=== PATIENT | female | born 1960 | race Caucasian/White ===

== ENCOUNTER 2017-09-20 19:46 | Inpatient (IN) | payer MEDICAID ==
[~2017-09-20] VITALS: Ht 154.9 cm; Wt 86.6 kg
[2017-09-20 10:30] VITALS: BP 134/62
[2017-09-20 19:49] VITALS: BP 144/86
--- NOTE | 2017-09-20 19:55 | NUR ---
PATIENT PRESENTS TO ED WITH LEFT SIDE FACIAL WEAKNESS X1 DAY. DR VILLA AT BEDSIDE FOR ASSESSMENT . PT STATES DROOLING SINCE THIS AM AND UNABLE TO KEEP FOOD IN MOUTH D/T FACIAL WEAKNESS . DENIES N/V/D; SKIN IS PINK/WARM/DRY; AAOX4 WITH EVEN AND STEADY GAIT; PT HAS MILD WEAKNESS TO LEFT HAND; LUNGS CLEAR BL; HR EVEN AND REGULAR; PT DENIES ANY FEVER, CP, SOB, OR COUGH AT THIS TIME; PATIENT STATES PAIN OF 4/10 FACIAL PAIN AT THIS TIME; VSS; PATIENT POSITIONED FOR COMFORT; HOB ELEVATED; BEDRAILS UP X2; BED DOWN. ER MD MADE AWARE OF PT STATUS.
--- NOTE | 2017-09-20 19:55 | NUR ---
PT TAKEN TO BED 1
--- NOTE | 2017-09-20 19:58 | NUR ---
Dr. Martinez evaluating patient at bedside.
--- NOTE | 2017-09-20 20:25 | NUR ---
PT TAKEN TO CT
[2017-09-20 20:38] LABS: APPEARANCE,URINE CLEAR (CLEAR); BILIRUBIN,URINE NEGATIVE (NEGATIVE); BLOOD, URINE TRACE-L (NEGATIVE); COLOR,URINE YELLOW (YELLOW); LEUKOCYTE ESTERASE ,URINE NEGATIVE (NEGATIVE); NITRITE, URINE NEGATIVE (NEGATIVE); UGLUCOSE NEGATIVE (NEGATIVE)
[2017-09-20 20:45] LABS: BASOPHILS # (AUTO) 0.2 K/uL (0.00-0.22); BASOPHILS % (AUTO) 2.4 % (0.0-2.0); EOSINOPHILS # (AUTO) 0.1 K/uL (0-0.4); EOSINOPHILS % (AUTO) 1.5 % (0.0-4.0); HEMOGLOBIN 12.7 g/dL (12.0-16.0); LYMPHOCYTES # (AUTO) 2.7 K/uL (2.5-16.5); LYMPHOCYTES % (AUTO) 39.1 % (20.5-51.1); MEAN CORPUSCULAR HEMOGLOBIN 30 pg (27-31); MEAN CORPUSCULAR HGB CONC 34 g/dL (33-37); MEAN CORPUSCULAR VOLUME 90.7 fL (80-94); MONOCYTES # (AUTO) 0.6 K/uL (0.8-1.0); MONOCYTES % (AUTO) 8.7 % (1.7-9.3); NEUTROPHILS # (AUTO) 3.3 K/uL (1.8-7.7); NEUTROPHILS % (AUTO) 48.3 % (42.2-75.2); PLATELET COUNT (AUTO) 165 K/uL (140-450); RED BLOOD CELL COUNT(AUTO) 4.19 MIL/uL (4.20-5.40); RED CELL DISTRIBUTION WIDTH 12.4 % (11.6-13.7); WHITE BLOOD COUNT (AUTO) 6.9 K/uL (4.8-10.8)
[2017-09-20 20:48] LABS: ANION GAP 15.8 (8-16); CARBON DIOXIDE 24.8 mmol/L (21-32); CREATININE 0.7 mg/dL (0.6-1.3); POTASSIUM 3.6 mmol/L (3.5-5.1)
[2017-09-20 20:54] LABS: ALBUMIN 3.9 g/dL (3.4-5.0); TOTAL BILIRUBIN 0.4 mg/dL (0.0-1.0)
[2017-09-20 21:15] LABS: FREE T4 (FREE THYROXINE) 0.77 ng/dL (0.76-1.46); THYROID STIMULATING HORMONE 3.16 uIU/mL (0.34-3.74)
[2017-09-20 21:19] LABS: RBC,URINE 0-5 (RARE) /HPF (0-5); WBC,URINE 0-5 (RARE) /HPF (0-5)
--- NOTE | 2017-09-20 21:30 | NUR ---
PT MOVED TO BED 4
[2017-09-20] MEDS ORDERED: HYDROcodone/APAP 7.5/325 MG 1 TAB PO PRN (22:10)
[2017-09-20] MEDS ORDERED: ONDANSETRON 4 MG/2 ML VIAL IVP PRN (22:10)
[2017-09-20] MEDS ORDERED: SYN.075 PO (22:14)
[2017-09-20] MEDS ORDERED: ASPIRIN 325 MG TABEC PO ONE (22:15)
[2017-09-20] MEDS ORDERED: ATORVASTATIN 20 MG TAB PO SCH (22:15)
--- NOTE | 2017-09-20 22:19 | NUR ---
Pt transferred to Tele via .
--- NOTE | 2017-09-20 22:25 | NUR ---
REPORT GIVEN AND CARE TRANSFERED TO SOLO MUNOZ. ROOM 104A. TRANSFERED VIA [place] WITH VSS.
[2017-09-20 22:27] LABS: CHOL/HDL RATIO 4.4 (1-4.5); PHOSPHORUS 3.5 mg/dL (2.5-4.9)
--- NOTE | 2017-09-20 22:30 | NUR ---
PATIENT ADMITTED TO THE UNIT FROM ER. PATIENT AWAKE, ALERT AND ORIENTED. PATIENT IS AMBULATORY. NO S/S OF DISTRESS NOTED. PATIENT ON ROOM AIR. MILD LEFT SIDED FACIAL DROOP NOTED. MILD WEAKNESS NOTED TO LEFT UPPER EXTREMITY. IV LINE NOTED TO RIGHT AC SALINE LOCKED. PATIENT ON TELE MONITORING. BED LOWERED WITH CALL LIGHT WITHIN REACH. WILL CONTINUE TO MONITOR
[2017-09-20 22:32] LABS: BARBITURATE, URINE NEG. ng/ml (NEG <=200); BENZODIAZEPINE, URINE NEG. ng/mL (NEG <=200); CANNABINOID, URINE NEG. ng/mL (NEG <=50); COCAINE, URINE NEG. ng/mL (NEG <=300); OPIATE, URINE NEG. ng/mL (NEG <=2000); PHENCYCLIDINE SCREEN,URINE NEG. ng/mL (NEG <=25)
[2017-09-20] MEDS: ACETAMINOPHEN 325 MG TAB PO PRN (22:41)
[2017-09-20] MEDS ORDERED: NACL 0.9% 1,000 ML IV ONE (23:15)
[2017-09-21] VITALS: BP 106/43
--- NOTE | 2017-09-21 02:11 | NUR ---
PATIENT ASLEEP IN BED. NO S/S OF DISTRESS NOTED
[2017-09-21 04:00] VITALS: BP 112/62
--- NOTE | 2017-09-21 06:00 | NUR ---
PATIENT AMBULATED TO THE BATHROOM TO VOID. NO S/S OF DISTRESS
[2017-09-21] MEDS: LEVOTHYROXINE 0.075 MG TAB PO SCH (06:23)
--- NOTE | 2017-09-21 07:23 | NUR ---
PATIENT REPORT GIVEN AT BEDSIDE. PATIENT ENDORSED IN STABLE CONDITION
--- NOTE | 2017-09-21 07:30 | NUR ---
RECEIVED PT'S REPORT FROM REGULATORY CONSULTANT NURSE, SOLO, PT IS AWAKE LYING ON THE BED WITH AN IV LINE ON RIGHT AC, NS 100ML/HR, G.20. PT IS ON NPO EXCEPT MEDS. NO SIGN OF DISTRESS NOTED. CALL LIGHT WITHIN REACH. WILL CONTINUE TO MONITOR.
[2017-09-21 08:00] VITALS: BP 126/72
--- NOTE | 2017-09-21 08:10 | NUR ---
PT IS AWAKE LYING ON THE BED, VITAL SIGNS TAKEN. NO SIGN OF DISTRESS NOTED AT THIS TIME. CALL LIGHT WITHIN REACH. WILL MONITOR.
[2017-09-21] MEDS: DOCUSATE SODIUM 100 MG GELCAP PO SCH ×2 (09:19→20:53)
[2017-09-21] MEDS ORDERED: ATORVASTATIN 20 MG TAB PO SCH (09:40)
--- NOTE | 2017-09-21 10:00 | NUR ---
PT IS AWAKE LYING ON THE BED, MEDICATIONS GIVEN. NO SIGN OF DISTRESS NOTED. CALL LIGHT WITHIN REACH. WILL MONITOR.
--- NOTE | 2017-09-21 10:45 | NUR ---
CALL CENTER SUPPORT CONSULTANT note (bedside swallow evaluation completed) [phone]. Bedside swallow evaluation completed, please see report for details. CALL CENTER SUPPORT CONSULTANT provided pt with education regarding purpose of evaluation and rationale for recommendations. Pt verbalized and demonstrated understanding and agreement with recommendations at this time. Recommend: 1) [id number] foods (per pt's request) 2) thin liquids 3) general aspiration precautions (including pt must be fully awake/alert/upright for any PO intakes, alternate small/slow bites and sips, stop PO if pt becomes less alert/SOB/coughing) 4) no further CALL CENTER SUPPORT CONSULTANT intervention indicated at this time. Physician may reorder if further concerns arise, as appropriate. Pt may benefit from outpatient CALL CENTER SUPPORT CONSULTANT intervention if pt's left-sided facial deficits persist, as appropriate. G-codes: [id number] [place] NOMS level 6. PVE for d/w RN (Diana) and auditing specialist (Angelica) prior to and following bedside swallow evaluation completion.
[2017-09-21 12:00] VITALS: BP 126/75
--- NOTE | 2017-09-21 12:16 | NUR ---
PT IS AWAKE, LYING ON THE BED, PAIN MEDICATION GIVEN. PT TOLERATED IT. WILL REASSESS PAIN AFTER AN HOUR. CALL LIGHT WITHIN REACH. NO SIGN OF DISTRESS NOTED. WILL MONITOR.
--- NOTE | 2017-09-21 13:23 | NUR ---
P.T. NOTES P.T. WERNER COMPLETED; NURSING TO AMBULATE PATIENT AD PARRISH. Addendum: 09/21/17 at 1323 by Hellen Leonard PT Amended: Links added.
--- NOTE | 2017-09-21 14:00 | NUR ---
PATIENT HAS BEEN SCREENED AND CATEGORIZED HIGH NUTRITION RISK. PATIENT WILL BE SEEN WITHIN 1-2 DAYS OF ADMISSION. 09/21/17 - 09/22/[address]
[2017-09-21 16:00] VITALS: BP 162/57
--- NOTE | 2017-09-21 17:20 | NUR ---
PT IS AWAKE LYING ON THE BED, VITAL SIGNS TAKEN, REPORTED BP RESULT OF 162/57 TO COURTNEY NORTON.
[2017-09-21] MEDS ORDERED: methylPREDNISolone SS 125 MG/2 ML VIAL IVP ONE (17:40)
--- NOTE | 2017-09-21 19:50 | NUR ---
ENDORSED PT TO PLEAT PATTERNMAKER NURSE FOR CONTINUITY OF CARE. PT IS STABLE AT THIS TIME.
--- NOTE | 2017-09-21 19:51 | NUR ---
RECEIVED REPORT AT PT BEDSIDE FROM DAY SHIFT RN HECTOR, FOR CONTINUITY OF CARE. PATIENT IS AWAKE, A/OX4, ON ROOM AIR. ABLE TO MAKE NEEDS KNOWN, ABLE TO FOLLOW COMMANDS. PT SKIN IS INTACT, WARM AND DRY. PATIENT HAS PERIPHERAL IV SITE TO RIGHT AC 20G, ASYMPTOMATIC, INTACT, PATENT. SR ON MONITOR, RESPIRATIONS EVEN AND UNLABORED. DISCUSSED PLAN OF CARE WITH PT, PT VERBALIZED UNDERSTANDING. PT STABLE, NO SIGNS OF DISTRESS NOTED AT THIS TIME. BED IN LOWEST POSITION, CALL LIGHT WITHIN REACH. WILL CONTINUE TO MONITOR.
[2017-09-21 20:00] VITALS: BP 135/61
[2017-09-21] MEDS: ACETAMINOPHEN 325 MG TAB PO PRN (20:53)
--- NOTE | 2017-09-21 20:55 | NUR ---
ADMINISTERED SCHEDULED MEDICATIONS PER ORDER. PT TOLERATED WELL. PT STABLE, NO SIGNS OF DISTRESS NOTED AT THIS TIME. BED IN LOWEST POSITION, CALL LIGHT WITHIN REACH. WILL CONTINUE TO MONITOR.
[2017-09-21] MEDS: ACYCLOVIR 800 MG TAB PO SCH (21:20)
[2017-09-22] VITALS: BP 106/50
--- NOTE | 2017-09-22 | NUR ---
VITAL SIGNS WITHIN NORMAL LIMITS. PT STABLE, NO SIGNS OF DISTRESS NOTED AT THIS TIME. BED IN LOWEST POSITION, CALL LIGHT WITHIN REACH. WILL CONTINUE TO MONITOR.
--- NOTE | 2017-09-22 02:15 | NUR ---
PT STABLE, NO SIGNS OF DISTRESS NOTED AT THIS TIME. BED IN LOWEST POSITION, CALL LIGHT WITHIN REACH. WILL CONTINUE TO MONITOR PATIENT.
[2017-09-22 04:00] VITALS: BP 102/50
--- NOTE | 2017-09-22 04:00 | NUR ---
VITAL SIGNS WITHIN NORMAL LIMITS. PT STABLE, NO SIGNS OF DISTRESS NOTED AT THIS TIME. BED IN LOWEST POSITION, CALL LIGHT WITHIN REACH. WILL CONTINUE TO MONITOR PATIENT.
[2017-09-22] MEDS: LEVOTHYROXINE 0.075 MG TAB PO SCH (06:07)
--- NOTE | 2017-09-22 06:52 | NUR ---
PT REQUESTED TO BE DISCONNECTED FROM IV BECAUSE SHE WANTS TO USE RESTROOM WITHOUT IV POLE. DISCONNECTED PT AND ASKED PT TO CALL WHEN DONE SO SHE CAN BE RECONNECTED.
[2017-09-22 07:07] LABS: BASOPHILS % (AUTO) 0.7 % (0.0-2.0); EOSINOPHILS # (AUTO) 0.1 K/uL (0-0.4); EOSINOPHILS % (AUTO) 1.4 % (0.0-4.0); HEMATOCRIT 39.6 % (36-48); HEMOGLOBIN 13.3 g/dL (12.0-16.0); LYMPHOCYTES # (AUTO) 2.9 K/uL (2.5-16.5); LYMPHOCYTES % (AUTO) 41.8 % (20.5-51.1); MEAN CORPUSCULAR HEMOGLOBIN 31 pg (27-31); MEAN CORPUSCULAR HGB CONC 34 g/dL (33-37); MEAN CORPUSCULAR VOLUME 91.2 fL (80-94); MONOCYTES # (AUTO) 0.5 K/uL (0.8-1.0); MONOCYTES % (AUTO) 7.6 % (1.7-9.3); NEUTROPHILS # (AUTO) 3.3 K/uL (1.8-7.7); NEUTROPHILS % (AUTO) 48.5 % (42.2-75.2); PLATELET COUNT (AUTO) 179 K/uL (140-450); RED BLOOD CELL COUNT(AUTO) 4.34 MIL/uL (4.20-5.40); RED CELL DISTRIBUTION WIDTH 13.3 % (11.6-13.7); WHITE BLOOD COUNT (AUTO) 6.9 K/uL (4.8-10.8)
[2017-09-22 07:27] LABS: PHOSPHORUS 3.9 mg/dL (2.5-4.9)
--- NOTE | 2017-09-22 07:30 | NUR ---
RECEIVED PT REPORT FROM HEALTH INFORMATICS SPECIALIST RN. PATIENT IS AWAKE, ALERT, OX4. NO S/S OF RESP DISTRESS NOTED. ABLE TO MAKE NEEDS KNOWN. IV SITE RIGHT AC 20G, INTACT AND PATIENT. BUE/BLE EQUAL STRENGTH. LEFT FACIAL PARALYSIS NOTED, ABLE TO FEEL SENSATION. FALL PRECAUTION IN PLACE. PLAN OF CARE DISCUSSED, PT VERBALIZED UNDERSTANDING. CALL LIGHT WITHIN REACH. WILL CONTINUE TO MONITOR.
--- NOTE | 2017-09-22 07:31 | NUR ---
ENDORSED PT TO DAY SHIFT RN FOR CONTINUITY OF CARE. PT IN STABLE CONDITION.
[2017-09-22 07:37] LABS: ANION GAP 12.1 (8-16); CREATININE 0.6 mg/dL (0.6-1.3); POTASSIUM 4.1 mmol/L (3.5-5.1)
[2017-09-22 08:00] VITALS: BP 130/58
[2017-09-22] MEDS ORDERED: methylPREDNISolone SS 125 MG/2 ML VIAL IVP SCH (08:30)
[2017-09-22] MEDS: ACYCLOVIR 800 MG TAB PO SCH ×3 (08:31→16:18)
[2017-09-22] MEDS: DOCUSATE SODIUM 100 MG GELCAP PO SCH (08:31)
[2017-09-22] MEDS: POLYVINYL ALCOHOL 1.4% OP 15 ML SOL OP PRN ×2 (08:56→17:16)
[2017-09-22] MEDS ORDERED: ATORVASTATIN 20 MG TAB PO SCH (09:00)
--- NOTE | 2017-09-22 11:40 | NUR ---
PT SLEEPING, EASILY AROUSED. NO S/S OF DISTRESS ON RM AIR. ASKED PT HOW THE LEFT FACIAL PARALYSIS IS. PT STATED FEELS A LITTLE BIT BETTER.
[2017-09-22 12:00] VITALS: BP 102/56
--- NOTE | 2017-09-22 12:20 | NUR ---
PT C/O CONSTIPATION. PT IS ALREADY ON COLACE, ENCOURAGED AMBULATION. NOTIFIED DR VALDEZ.
--- NOTE | 2017-09-22 13:00 | NUR ---
PT AMB IN THE HALLWAY, GAIT STEADY. DENIES DIZZINESS.
[2017-09-22] MEDS ORDERED: MAGNESIUM CITRATE 300 ML BTL PO SCH (14:00)
--- NOTE | 2017-09-22 15:05 | NUR ---
09/22/17 RD INITIAL ASSESSMENT COMPLETED PLEASE REFER TO NUTRITION ASSESSMENT UNDER CARE ACTIVITY FOR ESTIMATED NUTRITIONAL NEEDS. 1. CONTINUE REGULAR DIET TEXTURE TOLERATED 2. RECOMMEND DIET CHANGE FROM A REGULAR TO A CARDIAC DIET 3. PROVIDED LOWERING TRIGLYCERIDE DIET EDUCATION 4. RD TO FOLLOW-UP 3-5 DAYS, MODERATE RISK BHAVESH MCCARTHY RD
[2017-09-22] MEDS ORDERED: ACYC800T2 PO (15:21)
[2017-09-22] MEDS ORDERED: PRED10TA5 PO (15:21)
[2017-09-22 16:00] VITALS: BP 145/83
--- NOTE | 2017-09-22 16:00 | NUR ---
PRUNE JUICE GIVEN. PT FINISHED AND TOLERATE WELL.
--- NOTE | 2017-09-22 17:30 | NUR ---
ACCORDING TO PT, SHE HAD BMX1 AFTER THE PRUNE JUICE. NO S/S OF DISTRESS, RESTING IN BED AT THIS TIME.
--- NOTE | 2017-09-22 18:10 | NUR ---
PT DISCHARGED PER MD ORDER. DISCHARGE INSTRUCTIONS AND MED TEACHING PROVIDED. PT VERBALIZED UNDERSTANDING. RX GIVEN. MADE PT AWARE OF THE SCHEDULED MD APPOINTMENT. IV DC'D, TIP INTACT, PRESSURE APPLIED. TELE BOX REMOVED, AND WRIST BAND REMOVED. PT LEFT IN STABLE CONDITION AND WITH ALL HER BELONGING. FAMILY SERVICE CASEWORKER WHEELED PT TO LOBBY.
== END 2017-09-22 18:20 | disposition home or self-care (01) | DRG 47 ==
LOC: MED 19:46 → MTU 22:05
PROVIDERS: ADMIT Family Medicine Sports Medicine; ATTEND Family Medicine Sports Medicine
DX: G45.9 Transient cerebral ischemic attack, unspecified (principal); I10 Essential (primary) hypertension; G51.0 Bell's palsy; E03.9 Hypothyroidism, unspecified; E78.2 Mixed hyperlipidemia; R73.03 Prediabetes; Z79.899 Other long term (current) drug therapy
CPT/HCPCS: 36415; 70450; 71045; 80048; 80053; 80305; 81001; 82150; 83036; 83690; 83735; 83880; 84100; 84439; 84443; 84484; 85025; 85610; 85651; 85730; 86140; 86886; 86900; 86901; 87081; 92610; 93005; 93880; 97535; 97799; 99285; J2930; J7030; Q0092